=== PATIENT | female | born 1970 | race Caucasian/White ===

== ENCOUNTER 2016-09-16 07:48 | Day surgery (SDC) | payer OTHER ==
[2016-09-09 17:33] LABS: BASOPHILS 0.2 %; BASOPHILS ABSOLUTE 0.03 10/3/uL (0.0-0.16); EOSINOPHILS 2.5 %; HEMATOCRIT 44.3 % (36.0-48.0); HEMOGLOBIN 14.8 g/dL (12.0-16.0); IMMATURE GRANULOCYTES 0.6 %; IMMATURE GRANULOCYTES ABSOLUTE 0.09 10/3/uL (0.0-0.11); LYMPHOCYTES 18.9 %; LYMPHOCYTES ABSOLUTE 3.03 10/3/uL (0.67-4.30); MEAN CORPUS HGB CONC 33.4 g/dL (32.0-36.0); MEAN CORPUSCULAR HEMOGLOB 31.2 pg (26.0-34.0); MEAN CORPUSCULAR VOLUME 93.5 fL (80-100); MONOCYTES 5.8 %; MONOCYTES ABSOLUTE 0.93 10/3/uL (0.21-1.20); NEUTROPHILS ABSOLUTE 11.51 10/3/uL (2.02-8.40); PLATELET COUNT 305 10/3/uL (150-400); RBC DISTRIBUTION WIDTH 14.5 % (12.0-16.0); RED CELL COUNT 4.74 10/6/uL (4.0-5.6)
[2016-09-09 17:38] LABS: MANUAL DIFF NO %
[2016-09-09 17:50] LABS: BUN (BLOOD UREA NITROGEN) 12 MG/DL (6-23); CALCIUM, SERUM 9.1 MG/DL (8.5-10.4); CHLORIDE, SERUM 105 MMOL/L (96-112); CO2 (CARBON DIOXIDE) 28 MMOL/L (24-34); GFR AFRICAN AMERICAN 120 ML/MIN (>=60); GFR NON AFRICAN AMERICAN 103 ML/MIN (>=60); GLUCOSE, SERUM 88 MG/DL (60-99); POTASSIUM, SERUM 4.1 MMOL/L (3.5-5.3); SODIUM, SERUM 143 MMOL/L (135-148)
[2016-09-09 22:46] LABS: CA 125 II 5.6 U/ML (< 35.0)
--- NOTE | ~2016-09-16 | OP ---
Record Of Operation [facility] [address] [place]. [address] NAME: YAZMIN JOHNSON : 66 STATUS : [facility]#: [id number] AGE: 45 ADM/REG DATE : 09/16/16 MR#: [id number] REPORT SERV DATE: 09/19/16 DICTATED BY: PEDRO VANN DATE: 09/18/16 REPORT STATUS : Draft TRANSCRIBED BY: MODLaney DATE: 09/18/16 DATE OF PROCEDURE: 09/16/2016 PREOPERATIVE DIAGNOSIS: Grade 1 endometrial carcinoma. POSTOPERATIVE DIAGNOSIS: Grade 1 endometrial carcinoma. PROCEDURES: 1. Laparoscopic hysterectomy with bilateral salpingo-oophorectomy via the da Yony laparoscopic robotic instrument, CPT code 48367. 2. Pelvic lymph node sampling, CPT code 45245. 3. Injection of sentinel lymph node identification, CPT code . SURGEON: Pedro Vann M.D. STOVE TENDER: Reji Harrington MD ESTIMATED BLOOD LOSS: 50 mL. FLUIDS IN: 1700 mL of crystalloid. COMPLICATIONS: None. ANESTHESIA: General endotracheal. 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 She was indeed noted to have her retroperitoneal space previously dissected with the ureters extremely lateral going into the bladder. The patient was injected with an indocyanine green and sentinel lymph nodes were identified on the right side of the pelvis. There was minimal visible lymphatic tissue on the left. Pelvic lymph node sampling was performed. A complete dissection was not possible secondary to the previous dissection. At the completion of the procedure, a cystoscopy was performed with excellent bilateral ureteral jets. No evidence of bladder defect. PROCEDURE IN DETAIL: The patient was taken to the operating room where she was placed in supine position for administration of general anesthesia. Placed in dorsal lithotomy position. Prepped and draped in the usual sterile fashion. A FAIZAN uterine manipulator was placed and the patient was injected with indocyanine green at 3 and 9 o'clock position. Approximately, 4 mL were used. The TRISH ring was sutured to the patient's cervix. Our attention was then turned towards the anterior abdominal wall where an incision was made approximately 25 cm above the pubic symphysis and taken down to the underlying layer of fascia. The fascia was grasped with two sutures of 0 Vicryl, tented up and entered sharply. The peritoneum was then tented up and entered sharply, and a laparoscopic trocar was placed under direct visualization. The abdominal cavity was insufflated. Two additional 8 mm Record Of Operation [place] [id number] [facility] [place]. [address] NAME: YAZMIN JOHNSON : 66 STATUS : [facility] PAT#: [id number] AGE: 45 ADM/REG DATE : 09/16/16 MR#: [id number] REPORT SERV DATE: 09/19/16 DICTATED BY: PEDRO VANN DATE: 09/18/16 REPORT STATUS : Draft TRANSCRIBED BY: MODL DATE: 09/18/16 trocars were placed, one additional 12 mm trocar was placed. The patient was then docked to the laparoscopic robotic instrument and the remainder of the procedure was performed via the da Yony. The above findings were noted. The retroperitoneal spaces were carefully opened via the round ligaments, which were grasped with bipolar cautery. The ureters were noted to be underneath the round ligaments bilaterally. [place] lymph nodes were identified on the right and were removed with sharp dissection. An attempt at obtaining lymph nodes from the left was made, but not possible. However, both uterine arteries were identified at their origin and Hemoclips placed to ensure long-term hemostasis. The gonadal vessels were also isolated and Hemoclips were placed to ensure long-term hemostasis. They were then coagulated and transected bilaterally. Anteriorly, a bladder flap was created and taken down to a level well below the cervix. The uterine arteries were then skeletonized at the level of the cervix, grasped with bipolar cautery, cauterized and transected bilaterally. The uterosacral cardinal complex was then taken down using monopolar cautery and a circumferential incision was made around the cervix and vagina and the uterus, tubes, ovaries, . The vaginal cuff was then closed using running stitch of #1 PDS V-Loc. The pelvis was irrigated with copious amounts of warm water. All pedicles were inspected and found to be hemostatic. The laparoscopic instruments were removed. The gas was expelled from the abdomen. The initial incision was closed with 0 Vicryl at the fascia. A 12 mm port was also closed with 0 Vicryl at the fascia. The skin sites were closed with 4 0 Monocryl and Dermabond was placed. Postprocedure, a cystoscopy was performed with excellent bilateral ureteral jets and no evidence of bladder defect. At the completion of the procedure, the anesthesia was reversed. The patient was extubated and brought to the recovery room in stable condition. GUERA/MERNA Pedro Vann M.D. / [id number] CC: Russell Jang JOSEPH
[~2016-09-16 07:48] MED LIST: CEFT5 PO; GARLIC; PROZ10 PO; VITAMIN C
== END 2016-09-16 19:30 | disposition home or self-care (01) ==
LOC: SDC 07:48
PROVIDERS: Obstetrics & Gynecology Gynecologic Oncology
PROC: 0UT24ZZ Resection of Bilateral Ovaries, Percutaneous Endoscopic Approach (ICD-10-PCS; 2016-09-16)
PROC: 0UT74ZZ Resection of Bilateral Fallopian Tubes, Percutaneous Endoscopic Approach (ICD-10-PCS; 2016-09-16)
PROC: 07BC0ZX Excision of Pelvis Lymphatic, Open Approach, Diagnostic (ICD-10-PCS; 2016-09-16)
PROC: 0UT94ZZ Resection of Uterus, Percutaneous Endoscopic Approach (ICD-10-PCS; principal; 2016-09-16 11:00)
PROC: 0UTC4ZZ Resection of Cervix, Percutaneous Endoscopic Approach (ICD-10-PCS; 2016-09-16 11:00)
DX: C54.1 Malignant neoplasm of endometrium (principal); F17.210 Nicotine dependence, cigarettes, uncomplicated; K21.9 Gastro-esophageal reflux disease without esophagitis; E66.01 Morbid (severe) obesity due to excess calories; J44.9 Chronic obstructive pulmonary disease, unspecified; G47.33 Obstructive sleep apnea (adult) (pediatric); F41.9 Anxiety disorder, unspecified; Z68.42 Body mass index [BMI] 45.0-49.9, adult; Z79.899 Other long term (current) drug therapy; Z98.890 Other specified postprocedural states; Z90.49 Acquired absence of other specified parts of digestive tract
CPT/HCPCS: 36415; 71020; 80048; 84703; 85025; 86304; 86850; 86900; 86901; 88112; 88305; 88307; 88309; 88341; 88342; 88360; 93005; A9270-GY; J0694; J2250; J2405; J2710; J2795; J3010